=== PATIENT | female | born 1990 | race Two or more races ===

== ENCOUNTER 2024-06-25 22:19 | Emergency (ER) | payer OTHER ==
[~2024-06-25] VITALS: Ht 149.9 cm; Wt 57.2 kg
[2024-06-25 23:50] VITALS: BP 103/70; O2SAT 100
[2024-06-26] MEDS ORDERED: FAMOtidine 10 MG/ML (4ML VIAL) IV PUSH STA (02:10)
[2024-06-26] MEDS ORDERED: METOCLOPRAMIDE HCL 5 MG/ML VIAL IM STA (02:10)
[2024-06-26] MEDS ORDERED: RINGERS SOLUTION,LACTATED 1,000 ML IV STA (02:11)
[2024-06-26] MEDS ORDERED: FAMOTIDINE/PF 20 MG/2 ML VIAL ONE (02:13)
[2024-06-26] MEDS ORDERED: METOCLOPRAMIDE HCL 5 MG/ML VIAL ONE (02:13)
[2024-06-26 03:02] LABS: HEMOGLOBIN 12.8 g/dL (12.0-15.00); MEAN CELL VOLUME 80.6 fL (80.00-100.00); MEAN CORPUSCULAR HEMOGLOBIN 26.6 pg (27.00-32.0); PLATELET COUNT 203 K/uL (150-450); RED BLOOD COUNT 4.84 M/uL (4.00-6.00); RED CELL DISTRIBUTION WIDTH 11.7 % (11.5-14.5)
[2024-06-26 03:28] LABS: CALCIUM 9.4 mg/dL (8.5-10.1); CREATININE SERUM 0.5 mg/dL (0.55-1.02); GFR 142.98; POTASSIUM 3.57 mEq/L (3.5-5.1)
== END 2024-06-26 04:30 | disposition home or self-care (01) ==
LOC: ER 22:19
DX: O21.0 Mild hyperemesis gravidarum (principal); Z3A.01 Less than 8 weeks gestation of pregnancy

== ENCOUNTER 2024-09-08 09:37 | Outpatient (CLI) | payer OTHER | END 2024-09-08 09:38 | disposition home or self-care (01) | LOC: PRENATAL 09:37 | PROVIDERS: ATTEND Obstetrics & Gynecology Maternal & Fetal Medicine | DX: O44.00 Complete placenta previa NOS or without hemorrhage, unspecified trimester (principal); Z3A.19 19 weeks gestation of pregnancy ==

== ENCOUNTER 2024-12-03 07:57 | Outpatient (CLI) | payer OTHER ==
[2024-12-03] MEDS ORDERED: PRENATA CHEWAB1 EACH PO (18:47)
[2024-12-04] MEDS ORDERED: METRONIDAZOLE500 MG PO (07:31)
[2024-12-04] MEDS ORDERED: FUSION PLUS CA1 EACH PO (07:32)
== END 2024-12-03 07:58 | disposition home or self-care (01) ==
LOC: PRENATAL 07:57
PROVIDERS: ATTEND Obstetrics & Gynecology Maternal & Fetal Medicine
DX: O26.849 Uterine size-date discrepancy, unspecified trimester (principal); O36.8130 Decreased fetal movements, third trimester, not applicable or unspecified; Z3A.32 32 weeks gestation of pregnancy

== ENCOUNTER 2024-12-03 17:24 | Outpatient (CLI) | payer OTHER ==
[~2024-12-03] VITALS: Ht 149.9 cm; Wt 62.6 kg
[2024-12-03 16:08] VITALS: BP 94/63
[2024-12-03] MEDS ORDERED: RINGERS SOLUTION,LACTATED 1,000 ML IV SCH (18:15)
[2024-12-03] MEDS ORDERED: PRENATA CHEWAB1 EACH PO (18:47)
[2024-12-03 18:50] LABS: BASO % 0.2 % (0.1-1.2); EOS # 0.14 (0.04-0.54); EOS % 1.3 % (0.7-7.0); LYMPH # 2.07 (1.18-3.74); LYMPH % 19.6 % (19.3-53.1); MEAN PLATELET VOLUME 11.30 fl (9.4-12.4); MONO # 0.74 (0.24-0.82); MONO % 7.0 % (4.7-12.5); NEUT # 7.53 (1.56-6.13); NEUT % 71.3 % (34.0-71.1); RED CELL DISTRIBUTION WIDTH 12.8 % (11.6-14.4); URINE APPEARANCE Clear; URINE BILIRRUBIN Negative (NEGATIVE); URINE BLOOD Negative; URINE COLOR Yellow; URINE KETONE Negative (NEGATIVE); URINE LEUKOCYTE Moderate; URINE NITRATE Negative; URINE PROTEIN Negative (NEGATIVE); URINE UROBILINOGEN 0.2 E.U./dl
[2024-12-03 18:54] LABS: URINE BACTERIA 1173.6 uL (0.0-1933); URINE EPITHELIAL CELLS 52.2 uL (0.0-38.8); URINE WBC 201.1 uL (0.0-23.2)
[2024-12-03 18:58] LABS: URINE GLUCOSE 100 MG/DL (NEGATIVE)
[2024-12-03 18:59] LABS: URINE CAST 0.29 uL (0.0-1.40); URINE RBC 1.4 uL (0.0-20.8)
[2024-12-03 20:40] VITALS: BP 90/51
[2024-12-03] MEDS ORDERED: CEFAZOLIN SODIUM 1,000 MG VIAL IV SCH (21:00)
[2024-12-03 23:55] VITALS: BP 100/62; O2SAT 98
[2024-12-04 03:46] VITALS: BP 96/58
[2024-12-04 06:23] VITALS: BP 91/52; O2SAT 98
[2024-12-04] MEDS ORDERED: METRONIDAZOLE500 MG PO (07:31)
[2024-12-04] MEDS ORDERED: FUSION PLUS CA1 EACH PO (07:32)
[2024-12-04 08:45] VITALS: BP 91/52
[2024-12-04] MEDS ORDERED: IRON/V.C/V.B12/FOLIC A/VIT. E 1 CAPL CAPLET PO SCH (09:00)
== END 2024-12-04 08:44 | disposition home or self-care (01) ==
LOC: OBS/DEL 17:24
PROVIDERS: Obstetrics & Gynecology; ATTEND Student in an Organized Health Care Education/Training Program
DX: O99.013 Anemia complicating pregnancy, third trimester (principal); O23.593 Infection of other part of genital tract in pregnancy, third trimester; Z3A.36 36 weeks gestation of pregnancy

== ENCOUNTER → 2024-12-15 08:53 | Outpatient (CLI) | payer OTHER ==
[~2024-12-15 08:53] MED LIST: FUSION PLUS CA1 EACH PO; METRONIDAZOLE500 MG PO; PRENATA CHEWAB1 EACH PO
== END | disposition home or self-care (01) ==
LOC: PRENATAL 08:53
PROVIDERS: ATTEND Obstetrics & Gynecology Maternal & Fetal Medicine
DX: Z76.1 Encounter for health supervision and care of foundling (principal)

== ENCOUNTER 2025-01-19 06:10 | Inpatient (IN) | payer OTHER ==
[~2025-01-19] VITALS: Ht 149.9 cm; Wt 2.3 kg
[2025-01-19 05:54] VITALS: BP 104/73
[2025-01-19 07:05] LABS: BASO % 0.1 % (0.1-1.2); EOS # 0.12 (0.04-0.54); EOS % 1.3 % (0.7-7.0); LYMPH # 1.99 (1.18-3.74); LYMPH % 22.1 % (19.3-53.1); MEAN PLATELET VOLUME 11.90 fl (9.4-12.4); MONO # 0.64 (0.24-0.82); MONO % 7.1 % (4.7-12.5); NEUT # 6.20 (1.56-6.13); NEUT % 69.0 % (34.0-71.1); RED CELL DISTRIBUTION WIDTH 15.9 % (11.6-14.4)
[2025-01-19 07:06] LABS: URINE APPEARANCE Clear; URINE BILIRRUBIN Negative (NEGATIVE); URINE BLOOD Negative; URINE COLOR Yellow; URINE GLUCOSE Negative (NEGATIVE); URINE KETONE Negative (NEGATIVE); URINE LEUKOCYTE Trace; URINE NITRATE Negative; URINE PROTEIN Trace (NEGATIVE); URINE UROBILINOGEN 0.2 E.U./dl
[2025-01-19 07:07] LABS: URINE BACTERIA 1353.6 uL (0.0-1933); URINE EPITHELIAL CELLS 78.2 uL (0.0-38.8); URINE RBC 2.3 uL (0.0-20.8); URINE WBC 83.0 uL (0.0-23.2)
[2025-01-19 07:25] LABS: INR < 0.93
[2025-01-19 07:27] VITALS: BP 116/67
[2025-01-19 07:31] LABS: URINE CAST 0.14 uL (0.0-1.40)
[2025-01-19 07:33] LABS: ALT/SGPT 18.0 U/L (12-78); AST/SGOT 13.0 U/L (15-37); BILIRUBIN TOTAL 0.22 mg/dL (0.3-1.2); BUN CREA RATIO 22.0 (7.0-25.0); CREATININE SERUM 0.55 mg/dL (0.55-1.02); GFR 127.29; GLOBULINA 3.4 G/DL (2.4-3.5); GLUCOSE FASTING 87.0 mg/dL (65-100); OSMOLALITY SERUM 282.0 MOSM/KG (275-295)
[2025-01-19 07:49] LABS: URINE CRYSTALS MODERATE /HPF
[2025-01-19 07:50] LABS: TYPE CELLS RENAL TUBULAR
[2025-01-19] MEDS ORDERED: OXYTOCIN 20 UNITS/500ML RL PIGGYBAG IV ONE (11:53)
[2025-01-19 12:11] VITALS: BP 109/69
[2025-01-19] MEDS ORDERED: OXYTOCIN 500 ML IV SCH (12:30)
[2025-01-19 15:10] VITALS: BP 106/65
[2025-01-19] MEDS ORDERED: ERYTHROMYCIN BASE OPHT 1GM EACH TUBE OP ONE ×2 (21:04→23:15)
[2025-01-19] MEDS ORDERED: OXYTOCIN 10 UNITS/ML VIAL ONE (21:04)
[2025-01-19 21:12] VITALS: BP 109/69
[2025-01-19] MEDS ORDERED: CEFAZOLIN SODIUM 1,000 MG VIAL IV ONE (21:15)
[2025-01-19] MEDS ORDERED: KETOROLAC TROMETHAMINE 30 MG VIAL IV PRN (22:00)
[2025-01-19] MEDS ORDERED: PROMETHAZINE HCL 25 MG/ML AMPUL IV PRN (22:00)
[2025-01-19] MEDS ORDERED: MORPHINE SULFATE 4 MG/ML VIAL IV PRN (22:00)
[2025-01-19] MEDS ORDERED: OXYTOCIN 1,000 ML IV SCH (22:00)
[2025-01-19] MEDS ORDERED: OXYTOCIN 10 UNITS/ML VIAL IV ONE (23:15)
[2025-01-20 04:50] VITALS: BP 109/70
[2025-01-20 08:00] VITALS: BP 98/61
[2025-01-20 08:03] LABS: BASO % 0.1 % (0.1-1.2); EOS # 0.03 (0.04-0.54); EOS % 0.2 % (0.7-7.0); LYMPH # 1.72 (1.18-3.74); LYMPH % 12.5 % (19.3-53.1); MEAN PLATELET VOLUME 11.90 fl (9.4-12.4); MONO # 0.64 (0.24-0.82); MONO % 4.6 % (4.7-12.5); NEUT # 11.30 (1.56-6.13); NEUT % 82.2 % (34.0-71.1); RED CELL DISTRIBUTION WIDTH 15.9 % (11.6-14.4)
[2025-01-20] MEDS ORDERED: ACETAMINOPHEN WITH CODEINE 1 UDTAB TABLET PO PRN (09:00)
[2025-01-20] MEDS ORDERED: DOCUSATE SODIUM 100MG CAP PO SCH (09:00)
[2025-01-20] MEDS ORDERED: SIMETHICONE 125 MG CAPSULE PO SCH (09:00)
[2025-01-20 16:36] VITALS: BP 95/63
[2025-01-21] VITALS: BP 104/68
[2025-01-21 08:00] VITALS: BP 104/73
[2025-01-21] MEDS ORDERED: COLACE100 MG PO (10:17)
[2025-01-21] MEDS ORDERED: VITABEX IRON C1 EACH PO (10:17)
[2025-01-21] MEDS ORDERED: IBU800 MG PO (10:17)
== END 2025-01-21 16:01 | disposition home or self-care (01) | DRG 788 ==
LOC: LDR 06:10 → OB/GYN 01-20 00:02
PROVIDERS: ADMIT Student in an Organized Health Care Education/Training Program; ATTEND Student in an Organized Health Care Education/Training Program
PROC: 4A1HXCZ Monitoring of Products of Conception, Cardiac Rate, External Approach (ICD-10-PCS; 2025-01-19)
PROC: 10D00Z1 Extraction of Products of Conception, Low, Open Approach (ICD-10-PCS; principal; 2025-01-19 21:00)
DX: O61.0 Failed medical induction of labor (principal); O99.02 Anemia complicating childbirth; D64.9 Anemia, unspecified; Z3A.39 39 weeks gestation of pregnancy; Z37.0 Single live birth